=== PATIENT | male | born 1950 | race Caucasian/White ===

== ENCOUNTER 2021-04-22 00:57 | Day surgery (SDC) | payer OTHER, SELFPAY ==
[2021-04-13 09:41] VITALS: BMI 29.6
--- NOTE | 2021-04-21 10:47 | PM.HPGS ---
History of Present Illness History of Present Illness Consent: Risks, benefits, and alternatives have been discussed and questions answered. Patient agrees to proceed with procedure. Chief complaint: hx of colon polyps Narrative: Nolan Otero is a 70 year old male who is here for colon cancer screening. He had a tubular adenoma removed about 6 years ago. Review of Systems Review of Systems: All systems reviewed & are unremarkable except as noted in HPI and below PMFSH Social History Social History Smoking packs per day: 1.25 Smoking cigarettes per day: 25.0 Years smoked: 36 Smoking pack-years: 45.00 Smoking status: Former smoker Tobacco type: cigarettes Alcohol intake: current Drinks per week: 5 Living arrangements: with family Spiritual care concerns: No Meds Home Medications and Allergies Home Medications Medication Instructions Recorded Confirmed Type fluticasone propionate 1 spray INTRANASAL DAILY 04/13/21 04/22/21 History Allergies Allergy/AdvReac Type Severity Reaction Status Date / Time amoxicillin Allergy Nausea Verified 04/22/21 07:26 Exam Resp: Auscultation: clear to auscultation bilaterally Cardio: Rate: regular rate Rhythm: regular rhythm GI: GI Palp: Yes Soft to palpation and No Tenderness to palpation present (GI) Assessment and Plan Assessment and plan (1) Colon cancer screening: Code(s): Z12.11 - Encounter for screening for malignant neoplasm of colon Status: Acute Assessment and Plan: Colonoscopy with possible biopsy or polypectomy or cautery or injection of substances.
[2021-04-22 07:14] VITALS: BP 142/64; PULSE 84; RESP 16; TEMP 36.2; O2SAT 100; BMI 28.3
[2021-04-22] MEDS: LACTATED RINGERS 1,000 ML 150 ML IV CONT (07:44)
--- NOTE | 2021-04-22 08:20 | WPDANESEPPF ---
Anes - Initial Pre Proc Eval Procedure: Operation Date: 04/22/21 08:30 Proposed Procedures p Screening Colonoscopy - Suresh Muñoz MD Date/Time: 04/22/21 08:20 Surgeon: Suresh Muñoz MD Pre Op Diagnosis: hx of colon polyps Patient Data Age: 70 Gender: M Height: 1.85 m Weight: 97.4 kg Last Vital Signs Temp 97.1 F L 04/22/21 07:14 Pulse 84 04/22/21 07:14 Resp 16 04/22/21 07:14 BP 142/64 H 04/22/21 07:14 Pulse Ox 100 04/22/21 07:14 Allergies Allergy/AdvReac Type Severity Reaction Status Date / Time amoxicillin Allergy Nausea Verified 04/22/21 07:26 Home Medications Medication Instructions Recorded Confirmed Type fluticasone propionate 1 spray INTRANASAL DAILY 04/13/21 04/22/21 History Patient hx anesthesia problems: none Family hx anesthesia problems: none Results Review: All pre-operative results and documents have been reviewed as part of the pre-operative evaluation. [facility] Social History Social History Smoking packs per day: 1.25 Smoking cigarettes per day: 25.0 Years smoked: 36 Smoking pack-years: 45.00 Smoking status: Former smoker Tobacco type: cigarettes Alcohol intake: current Drinks per week: 5 Living arrangements: with family Spiritual care concerns: No Anes - Eval Final PreProcedure Day of Procedure 04/22/21 08:20 Patient weight: obese Heart: regular rate and rhythm Lungs: clear to auscultation Airway: Mallampati scale class II Neurological: alert and oriented Last oral intake: >/= 8 hours ASA classification: II Emergent: no Anesthetic plan: proceed Anesthesia type and monitoring: general GIVS and standard monitoring Results Review: All pre-operative results and documents have been reviewed as part of the pre-operative evaluation. Informed Consent: The patient's anesthetic plan and its attendant risks and benefits were discussed with the patient/family/POA. Questions were solicited and answers provided to the satisfaction of the patient/family/POA.
[2021-04-22 08:48] VITALS: BP 103/61; PULSE 79; RESP 14; O2SAT 99
[2021-04-22 08:58] VITALS: BP 95/61; PULSE 82; RESP 22; O2SAT 99
[2021-04-22 09:08] VITALS: BP 117/73; PULSE 78; RESP 20; O2SAT 100
== END 2021-04-22 09:10 | disposition home or self-care (01) ==
PROVIDERS: PCP Family Medicine; Visit Provider Internal Medicine Gastroenterology
PROC: 0DJD8ZZ Inspection of Lower Intestinal Tract, Via Natural or Artificial Opening Endoscopic (ICD-10-PCS; CPT 45378; principal; 2021-04-22 08:30)
DX: Z12.11 Encounter for screening for malignant neoplasm of colon (principal); D12.4 Benign neoplasm of descending colon; K63.5 Polyp of colon; Z87.891 Personal history of nicotine dependence; E66.9 Obesity, unspecified; Z68.28 Body mass index [BMI] 28.0-28.9, adult
CPT/HCPCS: 45385; 88305; J2704; J7120

== ENCOUNTER 2023-01-27 09:45 | Outpatient (RCR) | payer OTHER, SELFPAY | END 2023-01-28 11:20 | disposition home or self-care (01) | LOC: ANHCPREHAB 09:45 | PROVIDERS: PCP Family Medicine; Visit Provider Family Medicine | DX: Z95.2 Presence of prosthetic heart valve (principal) | CPT/HCPCS: 93798 ==

== ENCOUNTER 2024-07-25 00:22 | Day surgery (SDC) | payer OTHER, SELFPAY ==
[2024-07-17 10:21] VITALS: BMI 30.3
--- OUTSIDE RECORDS SUMMARY | 2024-07-25 00:25 | XMS_ITS | Encounter Summary ---
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 Harvey, 05/05/21 Social History Tobacco Use Types Packs/Day Years Used Date Smoking Tobacco: Former Cigarettes Q uit: 2001 Smokeless Tobacco: Never Alcohol Use Standard Drinks/Week Comments Yes 0 (1 standard drink = 0.6 oz pur e alcohol) Social PHQ-2 Answer Date Recorded PHQ-2 Score - If the patient scores above 3, please move on to questions 3-9 0 10/09/2020 Sex and Gender Information Value Date Recorded Sex Assigned at Male 08/25/2018 7:06 AM CDT Legal Sex Male 5:51 PM CDT Gender Identity Male 08/25/2018 7:06 AM CDT Sexual Orientation Straight 08/25/2018 7: 06 AM CDT Occupation Industry Job Start Date Job End Date Not on file Not on file Not on file Not on file COVID-19 Exposure Response Date Recorded In the last month, have you been in contact with someone who was confirmed or suspected to have Coronavirus / COVID-19? 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
--- OUTSIDE RECORDS SUMMARY | 2024-07-25 00:25 | XMS_ITS | Clinical Summary ---
Author Organization [facility] Address [address] [place] [id number] Care Team Providers Care Airplane Pilot Commercial Name Role Phone Hina Harvey MD Primary Care Provider [phone] Allergies Active Allergy Reactions Criticality Noted Date Comments Amoxicillin GI Upset 11/24/2016 Medications multi vitamin/minerals tablet Take 1 tablet by mouth every other day. Active fluticasone propionate 50 MCG/ACT nasal spray 2 sprays by Nasal route daily. Active aspirin 81 MG chewable tablet Chew 1 tablet (81 mg total) by mouth daily. Active cetirizine (ZYRTEC) 10 MG tablet Take 1 tablet (10 mg total) by mouth daily as needed for Allergies. Active furosemide (LASIX) 40 MG tablet 10/27/19 24 Active metoprolol tartrate (LOPRESSOR) 25 MG tabletIndications: Essential (primary) hypertension TAKE 1 TABLET BY MOUTH TWICE A DAY 180 tablet 06/07/19 25 Active rosuvastatin (CRESTOR) 10 MG tabletIndications: Hyperlipidemia, unspecified hyperlipidemia type TAKE 1 TABLET BY MOUTH EVERYDAY AT BEDTIME 90 tablet 06/11/19 25 Active montelukast (SINGULAIR) 10 MG tabletIndications: Seasonal allergies TAKE 1 TABLET BY MOUTH EVERYDAY AT BEDTIME 90 tablet 1 07/11/19 25 Active montelukast (SINGULAIR) 10 MG tabletIndications: Seasonal allergies Take 1 tablet (10 mg total) by mouth nightly at bedtime. 30 tablet 1 06/14/19 25 025 Discontinued Active Problems Problem Noted Date Diagnosed Date Peripheral arterial disease 06/14/2024 A-fib (CMS/HCC HHS/HCC) 12/30/2022 Fatigue 12/30/2022 Heart murmur 12/30/2022 S/P left atrial appendage ligation 12/30/2022 Seasonal allergies 12/30/2022 Methicillin resistant Staphylococcus aureus infe ction 09/28/2022 Overview (12/30/2022): 09/28/2022 nasopharyngeal MRSA+ Coronary artery disease 09/23/2022 Gout 09/10/2022 Premature atrial complexes 09/10/2022 Skin cancer 09/10/2022 Essential (primary) hypertension 04/13/2022 Assessment & Plan (04/13/2022 12:40 PM PARTS IDENTIFICATION TECHNICIAN): In the office, his blood pressure is elevated. I explained to him that his blood pressure is not ideally controlled that we could potentially increase antihypertensive therapy. He would prefer not to uptitrate therapy. I explained to him that aortic stenosis can often increase blood pressure. Nonrheumatic aortic valve stenosis 09/25/2021 Assessment & Plan (04/13/2022 12:32 PM PARTS IDENTIFICATION TECHNICIAN): I had a long discussion with the patient and explained the diagnosis of severe aortic valve stenosis. I explained that the mortality of severe aortic valve stenosis after 2 years of 50% and is only 3 to 5% survival after 5 years. He reportedly says that he does not understand how he can have this diagnosis without having any symptoms. I explained to him that often patients do not have symptoms and sometimes symptoms manifest as sudden cardiac . I did discuss the procedure of transcatheter aortic valve replacement to the patient. I explained the procedure in detail including transfemoral access with placement of a balloon mounted valve inside the existing aortic valve. I explained the risks and benefits that include but are not limited to: bleeding, infection, vascular complication (10%), cerebrovascular accident (3 to 5%), permanent pacemaker placement (10%), myocardial infarction (1 to 2%), aortic root rupture (1 2%), valve embolization (1-2%) and even (1 to 2%). I did explain to the patient that if we were to proceed with transcatheter aortic valve replacement, we would have to proceed with the TAVR work-up that includes cardiac catheterization, CT scan and surgical evaluation. I discussed options with Nolan Otero regarding surgical aortic valve replacement versus transcatheter aortic valve replacement. I explained that with surgical aortic valve replacement there is a choice between 2 types of valves including bioprosthetic valves versus mechanical valves. I explained that mechanical valves have a longer durability and require anticoagulation for life. If she were to have a problem with mechanical valve dysfunction, this would require a repeat open heart surgery in the future. I explained that bioprosthetic aortic valves have shorter durability, but do not require anticoagulation. Bioprosthetic aortic valves allow for future interventions such as TAVR. I discussed with her that with TAVR, the only option was for a bioprosthetic aortic valve. Given His age, explained that with a bioprosthetic aortic valve there would likely be the need for future intervention. I explained that doing 2 consecutive TAVR is at this time does not have as much data. Assessment & Plan (09/25/2021 12:23 PM CDT): I have reviewed his echocardiogram and his aortic stenosis appears to be in the moderate to severe range. The peak velocity is 3.9 m/s and the mean gradient is 36 mmHg. His LVOT VTI is elevated. The only concern I have is that his EF is not normal. This could potentially mean his aortic stenosis is worse than we are measuring. I explained this to him. I also explained to him that since he is having runs of nonsustained ventricular tachycardia that also could be an indicator that his aortic stenosis stenosis severity is being underestimated on the echocardiogram. I also explained to him that often 1 presentation of aortic stenosis is sudden cardiac . With watching aortic stenosis, he is undertaking that possibility. He voiced understanding. We will repeat an echocardiogram in 6 months. I did discuss the procedure of transcatheter aortic valve replacement to the patient. I explained the procedure in detail including transfemoral access with placement of a balloon mounted valve inside the existing aortic valve. I explained the risks and benefits that include but are not limited to: bleeding, infection, vascular complication (10%), cerebrovascular accident (3 to 5%), permanent pacemaker placement (10%), myocardial infarction (1 to 2%), aortic root rupture (1 2%), valve embolization (1-2%) and even (1 to 2%). I did explain to the patient that if we were to proceed with transcatheter aortic valve replacement, we would have to proceed with the TAVR work-up that includes cardiac catheterization, CT scan and surgical evaluation. I discussed options with Nolan Otero regarding surgical aortic valve replacement versus transcatheter aortic valve replacement. I explained that with surgical aortic valve replacement there is a choice between 2 types of valves including bioprosthetic valves versus mechanical valves. I explained that mechanical valves have a longer durability and require anticoagulation for life. If she were to have a problem with mechanical valve dysfunction, this would require a repeat open heart surgery in the future. I explained that bioprosthetic aortic valves have shorter durability, but do not require anticoagulation. Bioprosthetic aortic valves allow for future interventions such as TAVR. I discussed with her that with TAVR, the only option was for a bioprosthetic aortic valve. Given His age, explained that with a bioprosthetic aortic valve there would likely be the need for future intervention. I explained that doing 2 consecutive TAVR is at this time does not have as much data. Systolic CHF, chronic ([facility]) 09/26/19 Assessment & Plan (04/13/2022 12:38 PM PARTS IDENTIFICATION TECHNICIAN): I reviewed his most recent echocardiogram and I do not believe he has evidence of left ventricular dysfunction. Continue metoprolol and lisinopril. Assessment & Plan (09/25/2021 12:24 PM CDT): He is found to have systolic heart failure. His EF is decreased on both his echo and his nuclear stress test. It is possible of the EF is down because of aortic stenosis. I recommended that he start goal-directed medical therapy with metoprolol succinate 25 mg daily and lisinopril 5 mg daily. He does not appear to require diuretics at this time. Skin lesion of left arm 03/01/2018 Squamous cell skin cancer 02/12/2018 Skin lesion of face 01/20/2018 Left serous otitis media 12/19/2017 Cataracts, bilateral 03/01/2017 Thoracic back pain 08/16/2016 VT (ventricular tachycardia) ([facility]) Assessment & Plan (09/25/2021 12:26 PM CDT): Start beta-blockers. He is already following up with electrophysiology. Resolved Problems Problem Noted Date Diagnosed Date Resolved Date Hospital discharge follow-up 12/30/2022 01/03/2023 Wears glasses 03/01/2017 01/25/2020 Encounter for preventive health examination 09/15/2015 01/25/2020 Encounters Date Type Department Care Team Description 06/18/2024 7:20 AM PARTS IDENTIFICATION TECHNICIAN - 06/18/2024 11:59 PM PARTS IDENTIFICATION TECHNICIAN Hospital Encounter [facility] [address] [place] [address] Hina Harvey MD Discharge Disposition: Home or Self Care (Routine Discharge) 06/18/2024 Travel 06/14/2024 8:40 AM PARTS IDENTIFICATION TECHNICIAN Office Visit [facility] [id number] [place] [phone] Hina Harvey MD Follow Up; Hypertension 06/14/2024 Travel 05/23/2024 Telephone [facility] [id number] [place] [phone] Hina Harvey MD Referral from Last 3 Months Immunizations Name Administration Dates Next Due PFIZER COVID-19 (ORIGINAL FO RMULATION, PURPLE CAP) mRNA, LNP-S, PF, 30 MCG/0.3 ML DOSE 02/27/2021,07/31/2020,07/08/2020 PFIZER COVID-19 BIVALENT (12 +) mRNA, LNP-S, PF, 30 MCG/0.3 ML DOSE 03/02/2022 Tdap (Generic) 07/11/2016 Family History Medical History Relation Comments Hypertension Mother Stroke Mother Diabetes Other Relation Status Comments Father (Age 90) Maternal Grandfather (Age 47) Maternal Grandmother (Age 102) Mother (Age 49) Other Alive Paternal Grandfather (Age 84) Paternal Grandmother (Age 84) Social History Tobacco Use Types Packs/Day Years Used Date Smoking Tobacco: Former Cigarettes Q uit: 02/2002 Smokeless Tobacco: Never Tobacco Cessation:Counseling Given: No Comments:former smoker Alcohol Use Standard Drinks/Week Comments Yes 0 (1 standard drink = 0.6 oz pur e alcohol) Social AUDIT-C Answer Date Recorded Q1: How often do you have a drink containing alc ohol? 2-3 times a week 10/04/2023 Q2: How many drinks containi ng alcohol do you have on a typical day when you are drinking? 1 or 2 10/04/2023 Q3: How often do you have si x or more drinks on one occasion? Less than monthly 10/04/2023 PHQ-2 Answer Date Recorded Patient Health Questionnaire-2 Score 0 10/04/2023 Sex and Gender Information Value Date Recorded Sex Assigned at Male 08/25/2018 7:06 AM CDT Legal Sex Male 5:51 PM CDT Gender Identity Male 08/25/2018 7:06 AM CDT Sexual Orientation Straight 08/25/2018 7: 06 AM CDT Occupation Industry Job Start Date Job End Date Not on file Not on file Not on file Not on file Last Filed Vital Signs Vital Sign Reading Time Taken Comments Blood Pressure 109/59 06/14/2024 8:28 AM PARTS IDENTIFICATION TECHNICIAN Pulse 72 06/14/2024 8:28 AM PARTS IDENTIFICATION TECHNICIAN Temperature 36.4 C (97.6 F) 06/14/2024 8:28 AM PARTS IDENTIFICATION TECHNICIAN Respiratory Rate 16 06/14/2024 8:28 AM PARTS IDENTIFICATION TECHNICIAN Oxygen Saturation 96% 06/14/2024 8:28 AM PARTS IDENTIFICATION TECHNICIAN Inhaled Oxygen Concentration - - Weight 102.5 kg (226 lb) 06/14/2024 8:28 AM PARTS IDENTIFICATION TECHNICIAN Height 185.4 cm (6' 1 ) 06/14/2024 8:28 AM PARTS IDENTIFICATION TECHNICIAN Body Mass Index 29.82 06/14/2024 8:28 AM PARTS IDENTIFICATION TECHNICIAN Plan of Treatment Health Maintenance Due Date Last Done Comments Colorectal Cancer Screening Colonoscopy (10 Years) 1950 Pneumococcal Vaccine: 65+ Years (1 of 2 - PCV) 09/25/1955 Hepatitis C 09/25/1967 Zoster Vaccines (1 of 2) 09/25/1999 RSV Immunization or 60+ Years (1 - Risk 60-74 years 1-dose series) 2009 Annual Medicare Wellness Visit 2014 COVID-19 Vaccine ( season) 2024 03/02/2022, 02/27/2021, 07/31/2020, Additional history exists Influenza Adult (#1) 2024 PHQ-2 (Physician [place]) 05/16/2024 10/04/2023 DTaP, Tdap and Td Vaccines (2 - Td or Tdap) 07/11/2026 07/11/2016 AAA SCREENING Completed 02/03/2023 Meningococcal B Vaccine Aged Out No l onger eligible based on patient's age to complete this topic Meningococcal Vaccine Aged Out No jensen antonio eligible based on patient's age to complete this topic RSV Immunizations Under 20 Months Aged Out No longer eligible based on patient's age to complete this topic Procedures Procedure Name Priority Date/Time Associated Diagnosis Comments PROSTATE SPECIFIC ANTIGEN,SCREENING Routine 06/18/2024 7:24 AM PARTS IDENTIFICATION TECHNICIAN Screening for prostate cancer LIPID PANEL Routine 06/18/2024 7:24 AM PARTS IDENTIFICATION TECHNICIAN Essential (primary) hypertension COMPREHENSIVE METABOLIC PANEL Routine 06/18/2024 7:24 AM PARTS IDENTIFICATION TECHNICIAN Essential (primary) hypertension CT CHEST WO CON Routine 02/03/2023 2:34 PM CDT Chest pain, unspecified type COLONOSCOPY Routine PARTS IDENTIFICATION TECHNICIAN from Last 3 Months or Most Recently Relevant to Health Maintenance Results * PROSTATE SPECIFIC ANTIGEN,SCREENING (06/18/2024 7:24 AM PARTS IDENTIFICATION TECHNICIAN) PSA 0.79 <4.00 NG/ML 06/18/2024 8:33 AM PARTS IDENTIFICATION TECHNICIAN [facility] Comment: Test was performed using the Siemens method. Results obtained with other assay methods or kits cannot be used interchangeably with results obtained by the Siemens method. 06/18/2024 7:24 AM PARTS IDENTIFICATION TECHNICIAN us Hina Harvey MD LABORATORY Final Resul t [facility] [address] [place] [address], [place] [phone] * (ABNORMAL) COMPREHENSIVE METABOLIC PANEL (06/18/2024 7:24 AM PARTS IDENTIFICATION TECHNICIAN) [facility] GLUCOSE 114(H) 70 - 99 MG/DL 06/18/2024 8:30 AM [facility] BUN 17 7 - 18 MG/DL 06/18/2024 8:30 AM [facility] CREATININE S/P/B 1.19 0.7 - 1.3 MG/DL 06/18/2024 8:30 AM [facility] SODIUM S/P/B 137 136 - 145 MMOL/L 06/18/2024 8:30 AM [facility] POTASSIUM S/P/B 4.8 3.5 - 5.1 MMOL/L 06/18/2024 8:30 AM [facility] CHLORIDE S/P/B 101 100 - 108 MMOL/L 06/18/2024 8:30 AM [facility] CO2 27.1 21 - 32 MMOL/L 06/18/2024 8:30 AM [facility] CALCIUM S/P/B 9.1 8.5 - 10.1 MG/DL 06/18/2024 8:30 AM [facility] BILIRUBIN TOTAL S/P/B 1.2 0.2 - 1.2 MG/DL 06/18/2024 8:30 AM [facility] TOTAL PROTEIN S/P/B 6.7 6.4 - 8.2 G/DL 06/18/2024 8:30 AM [facility] ALBUMIN S/P/B 3.8 3.4 - 5.0 G/DL 06/18/2024 8:30 AM [facility] AST 23 15 - 37 U/L 06/18/2024 8:30 AM [facility] ALT 32 16 - 60 U/L 06/18/2024 8:30 AM [facility] ALKALINE PHOSPHATASE S/P/B 97 50 - 136 U/L 06/18/2024 8:30 AM [facility] ANION GAP 8.9 5 - 15 MMOL/L 06/18/2024 8:30 AM [facility] BUN CREATININE RATIO 14.3 6 - 26 06/18/2024 8:30 AM [facility] A/G RATIO 1.3 1.0 - 2.0 RATIO 06/18/2024 8:30 AM [facility] GFR ESTIMATE 64(L) >90 ML/MIN/1.7 3 M2 06/18/2024 8:30 AM [facility] Comment: NOTE: eGFR is not calculated for patients <18 years of age. This is an estimated GFR calculation using the new CKD EPI creatinine equation without race and so does not require a correction factor for race. This estimated GFR should not be used for calculating drug doses. 06/18/2024 7:24 AM PARTS IDENTIFICATION TECHNICIAN us Hina Harvey MD LABORATORY Final Resul t [facility] [address] [place] [address], [place] [phone] * LIPID PANEL (06/18/2024 7:24 AM PARTS IDENTIFICATION TECHNICIAN) CHOLESTEROL 126 <200.0 MG/DL 06/18/2024 8:30 AM [facility] TRIGLYCERIDES 58 <150 MG/DL 06/18/2024 8:30 AM [facility] HDL 56 >40.0 MG/DL 06/18/2024 8:30 AM [facility] LDL (CALCULATED) 58 <100 MG/DL 06/18/19 8:30 AM PARTS IDENTIFICATION TECHNICIAN [facility] NON HDL CHOLESTEROL 70 <130 MG/DL 06/18 8:30 AM [facility] CHOL/HDL RATIO 2.2 0.0 - 4.5 06/18/2024 8:30 AM [facility] VLDL CALCULATION 12 5 - 55 MG/DL 06/18/2024 8:30 AM [facility] LIPID INTERPRETATION 06/18/2024 8:30 AM [facility] Comment: [facility] REPORT RECOMMENDATIONS: ADULT CHILD LOW RISK: CHOLESTEROL <200 <170 TRIGLYCERIDE <150 --- HDL >=60 --- LDL <100 <110 BORDERLINE: CHOLESTEROL 200-239 170-199 TRIGLYCERIDE 150-199 --- HDL 40-59 --- LDL 100-159 110-129 HIGH RISK: CHOLESTEROL >=240 >=200 TRIGLYCERIDE >=200 --- HDL <40 --- LDL >=160 >=130 06/18/2024 7:24 AM PARTS IDENTIFICATION TECHNICIAN us Hina Harvey MD LABORATORY Final Resul t [facility] [address] [place] [address], * CT CHEST WO CON (02/03/2023 2:34 PM CDT) Anatomical Region Laterality Modality Chest Computed Tomogra phy 02/03/2023 4:39 PM CDT Impressions 02/03/2023 4:54 PM CDT IMPRESSION: 1. No acute findings. Specifically no distinct abnormality along the left chest wall or overlying postoperative site in the sternum.. No infiltrate or effusion. Minimal scar versus atelectasis in both lung bases.. Partially visualized spleen with mild splenomegaly as detailed above. If indicated follow-up with CT the abdomen and pelvis. Ordered By: HINA HARVEY Interpreted By: Reymundo Rand, 02/03/2023 4:39 PM Narrative 02/03/2023 4:54 PM CDT IMAGING STUDIES: CT CHEST WO CON DATE: 02/03/2023 2:28 PM COMPARISON STUDIES: No comparisons. CLINICAL HISTORY: Chest pain, nonspecific . Left-sided chest pain since open heart surgery in September 2022. Radiation dose reduction technique was utilized. FINDINGS: 1. No infiltrate or effusion. No pneumothorax. Minimal scar versus atelectasis in both lung bases. Minimal pleural thickening in the posterior left hemithorax. 2. Atherosclerotic aorta without dilatation. No pericardial effusion. No pathologic lymphadenopathy or pulmonary nodules. . 3. Median sternotomy. Aortic valve replacement. Moderate coronary artery calcifications with probable stents. 4. Upper abdomen with low density well-defined left adrenal nodule measuring 3.1 cm. Has benign Hounsfield units. Normal right adrenal gland. Cholecystectomy. Fatty superior liver. Partially visualized spleen with mild splenomegaly measuring up to 14.3 cm. 5. Degenerative change in thoracic spine. Bilateral ribs without gross abnormality. No chest wall abnormalities. Muscular planes are grossly well maintained. Procedure Note Vincent Rand MD - 02/03/2023 IMAGING STUDIES: CT CHEST WO CON DATE: 02/03/2023 2:28 PM COMPARISON STUDIES: No comparisons. CLINICAL HISTORY: Chest pain, nonspecific . Left-sided chest painsince open heart surgery in September 2022. Radiation dose reduction techniquewas utilized. FINDINGS: 1. No infiltrate or effusion. No pneumothorax. Minimal scar versusatelectasis in both lung bases. Minimal pleural thickening in theposterior left hemithorax. 2. Atherosclerotic aorta without dilatation. No pericardial effusion. Nopathologic lymphadenopathy or pulmonary nodules. . 3. Median sternotomy. Aortic valve replacement. Moderate coronary arterycalcifications with probable stents. 4. Upper abdomen with low density well-defined left adrenal nodulemeasuring 3.1 cm. Has benign Hounsfield units. Normal right adrenal gland.Cholecystectomy. Fatty superior liver. Partially visualized spleen withmild splenomegaly measuring up to 14.3 cm. 5. Degenerative change in thoracic spine. Bilateral ribs without grossabnormality. No chest wall abnormalities. Muscular planes are grossly wellmaintained. IMPRESSION: 1. No acute findings. Specifically no distinct abnormality along the leftchest wall or overlying postoperative site in the sternum.. No infiltrate or effusion. Minimal scar versus atelectasis in both lungbases.. Partially visualized spleen with mild splenomegaly as detailed above. Ifindicated follow-up with CT the abdomen and pelvis. Ordered By: HINA HARVEY Interpreted By: Reymundo Rand, 02/03/2023 4:39 PM us Hina Harvey MD CT Final Resul t * Colonoscopy ( PARTS IDENTIFICATION TECHNICIAN) Narrative [employer] TO EPIC CONVERSION - PARTS IDENTIFICATION TECHNICIAN Documented hx of procedure Procedure Note Oliva Ahmadi MD - 03/19/2018 Documented hx of procedure us Generic Conversion Md AHMADI GI PROCEDURE ORDERABLES Final Result [employer] TO EP[facility] CONVERSION from Last 3 Months or Most Recently Relevant to [place] [address] [employer] Care Teams Airplane Pilot Commercial Relationship Specialty [place] [id number] [place] [address] PCP - General FAMILY PRACTICE 07/21/18
[2024-07-25 06:43] VITALS: BP 131/70; PULSE 68; RESP 18; TEMP 36.1; O2SAT 100; BMI 29.6
[2024-07-25] MEDS: VANCOMYCIN 1,500 MG/NS 500 ML BAG 250 MG IVPB (06:57)
[2024-07-25] MEDS: LACTATED RINGERS 1,000 ML 150 ML IV CONT (06:59)
--- NOTE | 2024-07-25 07:14 | WPDANESEPPF ---
Anes - Initial Pre Proc Eval Procedure: Operation Date: 07/25/24 08:00 Proposed Procedures p Colonoscopy - Evan Moss MD Date/Time: 07/25/24 07:14 Surgeon: Evan Moss MD Pre Op Diagnosis: personal hx of colon polyps. Patient Data Age: 73 Gender: M Height: 1.85 m Weight: 102 kg Last Vital Signs Temp 36.1 C L 07/25/24 06:43 Pulse 68 07/25/24 06:43 Resp 18 07/25/24 06:43 BP 131/70 07/25/24 06:43 Pulse Ox 100 07/25/24 06:43 O2 Del Method Room Air 07/25/24 06:43 Allergies Allergy/AdvReac Type Severity Reaction Status Date / Time amoxicillin AdvReac Nausea Verified 07/25/24 06:42 Home Medications ?Medication ?Instructions ?Recorded ?Confirmed ?Type fluticasone propionate 50 1 spray intranasal DAILY 04/13/21 07/25/24 History mcg/actuation nasal spray,suspension aspirin 81 mg tablet,delayed 81 mg PO DAILY 07/17/24 07/25/24 History release (Adult Low Dose Aspirin) cetirizine 10 mg capsule (All Day 10 mg PO DAILY 07/17/24 07/25/24 History Allergy (cetirizine)) metoprolol tartrate 25 mg tablet 25 mg PO BID 07/17/24 07/25/24 History montelukast 10 mg tablet 10 mg PO DAILY 07/17/24 07/25/24 History rosuvastatin 10 mg tablet 10 mg PO DAILY 07/17/24 07/25/24 History Patient hx anesthesia problems: none Family hx anesthesia problems: none Results Review: All pre-operative results and documents have been reviewed as part of the pre-operative evaluation. [facility] Past Medical History Medical History (Updated 07/25/24 @ 07:15 by Rogelio Diaz MD) History of atrial fibrillation Surgical History Surgical History (Updated 07/25/24 @ 07:15 by Rogelio Diaz MD) S/P AVR (aortic valve replacement) Family History Family History Father Diabetes mellitus Mother Hypertension Cerebrovascular accident Social History Social History Smoking packs per day: 1 Smoking cigarettes per day: 20.0 Years smoked: 36 Smoking pack-years: 36.00 Smoking status: Former smoker Tobacco type: cigarettes Alcohol intake: current Drinks per week: 3 Living arrangements: with family Spiritual care concerns: No Anes - Eval Final PreProcedure Day of Procedure 07/25/24 07:14 Patient weight: overweight Heart: irregular rhythm Lungs: clear to auscultation Airway: Mallampati scale class II Neurological: alert and oriented Last oral intake: >/= 8 hours ASA classification: III Emergent: no Anesthetic plan: proceed Anesthesia type and monitoring: general GIVS and standard monitoring Results Review: All pre-operative results and documents have been reviewed as part of the pre-operative evaluation. Informed Consent: The patient's anesthetic plan and its attendant risks and benefits were discussed with the patient/family/POA. Questions were solicited and answers provided to the satisfaction of the patient/family/POA.
--- NOTE | 2024-07-25 08:18 | PM.HPGS ---
History of Present Illness History of Present Illness Consent: Risks, benefits, and alternatives have been discussed and questions answered. Patient agrees to proceed with procedure. Chief complaint: personal hx of colon polyps. Narrative: Nolan Otero is a 73 year old male with h/o colon polyp, last colonoscopy 2020 Review of Systems Review of Systems: All systems reviewed & are unremarkable except as noted in HPI and below PMFSH Past Medical History Medical History (Updated 07/25/24 @ 08:18 by Evan Moss MD) Colon polyp History of atrial fibrillation Surgical History Surgical History (Updated 07/25/24 @ 07:15 by Rogelio Diaz MD) S/P AVR (aortic valve replacement) Family History Family History Father Diabetes mellitus Mother Hypertension Cerebrovascular accident Social History Social History Smoking packs per day: 1 Smoking cigarettes per day: 20.0 Years smoked: 36 Smoking pack-years: 36.00 Smoking status: Former smoker Tobacco type: cigarettes Alcohol intake: current Drinks per week: 3 Living arrangements: with family Spiritual care concerns: No Meds Home Medications and Allergies Home Medications ?Medication ?Instructions ?Recorded ?Confirmed ?Type fluticasone propionate 50 1 spray intranasal DAILY 04/13/21 07/25/24 History mcg/actuation nasal spray,suspension aspirin 81 mg tablet,delayed 81 mg PO DAILY 07/17/24 07/25/24 History release (Adult Low Dose Aspirin) cetirizine 10 mg capsule (All Day 10 mg PO DAILY 07/17/24 07/25/24 History Allergy (cetirizine)) metoprolol tartrate 25 mg tablet 25 mg PO BID 07/17/24 07/25/24 History montelukast 10 mg tablet 10 mg PO DAILY 07/17/24 07/25/24 History rosuvastatin 10 mg tablet 10 mg PO DAILY 07/17/24 07/25/24 History Allergies Allergy/AdvReac Type Severity Reaction Status Date / Time amoxicillin AdvReac Nausea Verified 07/25/24 06:42 Vital Signs Vital Signs - 24 hr 07/25/24 06:43 Temperature 97 F L Pulse Rate 68 Respiratory Rate 18 Blood Pressure 131/70 Pulse Oximetry 100 Oxygen Delivery Room Air Exam Const: General: comfortable and no acute distress HENMT: Face/Nose/Sinus: Normal nares present Eyes: General: appearance normal, both eyes and all related structures Neck: Neck: no JVD Resp: Auscultation: clear to auscultation bilaterally Cardio: Rate: regular rate Rhythm: regular rhythm GI: Inspection: non-distended GI Palp: Yes Soft to palpation Skin: General skin exam: normal color Neuro: Speech: normal speech Extrem: General: normal to inspection Psych: Mental Status: mental status grossly normal Assessment and Plan Assessment and plan (1) Colon polyp: Code(s): K63.5 - Polyp of colon Status: Acute Assessment and Plan: colonoscopy
[2024-07-25 08:35] VITALS: BP 90/50; PULSE 66; RESP 15; O2SAT 98
[2024-07-25 08:45] VITALS: BP 90/49; PULSE 64; RESP 15; O2SAT 99
[2024-07-25 08:55] VITALS: BP 112/56; PULSE 65; RESP 15; O2SAT 99
[2024-07-25 09:05] VITALS: BP 126/70; PULSE 66; RESP 16; O2SAT 100
== END 2024-07-25 09:21 | disposition home or self-care (01) ==
PROVIDERS: PCP Family Medicine; Referring Provider Family Medicine; Visit Provider Internal Medicine Gastroenterology
PROC: 0DJD8ZZ Inspection of Lower Intestinal Tract, Via Natural or Artificial Opening Endoscopic (ICD-10-PCS; CPT 45378; principal; 2024-07-25 08:00)
DX: Z12.11 Encounter for screening for malignant neoplasm of colon (principal); D12.3 Benign neoplasm of transverse colon; D12.2 Benign neoplasm of ascending colon; I48.91 Unspecified atrial fibrillation; Z79.82 Long term (current) use of aspirin; Z98.890 Other specified postprocedural states; Z95.2 Presence of prosthetic heart valve; Z87.891 Personal history of nicotine dependence; Z82.49 Family history of ischemic heart disease and other diseases of the circulatory system
CPT/HCPCS: 45385; 88305; J2003; J2704; J3370; J7120